=== PATIENT | male | born 1975 | race Caucasian/White ===

== ENCOUNTER 2017-02-20 10:19 | Inpatient (IN) | payer OTHER ==
--- NOTE | 2017-02-20 10:47 | ED ---
General Adult HPI - General Chief complaint: Neuro Symptoms/Deficit Stated complaint: right side numbness Time Seen by Provider: 02/20/17 10:30 Source: patient, RN notes reviewed Mode of arrival: ambulatory - History of Present Illness Initial comments: This is a 41-year-old male who presents to the emergency department complaining of a 6 day history of slurred speech and numbness of the right side of his tongue and altered sensation of the right cheek. Patient denies any visual disturbance patient denies any headache patient denies any black strength of any of his extremities patient denies any numbness anywhere else. Patient states he was being treated for a sinus infection but has slurred speech continues. Patient denies any chest pain palpitations difficulty breathing chest breath per patient denies abdominal pain patient denies nausea vomiting diarrhea. Family states at times it appears he does have a little bit of facial droop at the corner of his right mouth but most the time it does not appear that way. - Related Data Home Medications Medication Instructions Recorded Confirmed Warfarin [Coumadin] 5 mg PO DAILY 06/01/14 02/20/17 Sulfamethox-Tmp 800-160Mg [Bactrim 1 tab PO BID 02/20/17 02/20/17 DS 800-160 mg] Allergies Allergy/AdvReac Type Severity Reaction Status Date / Time cephalexin monohydrate Allergy Unknown Verified 02/20/17 10:55 [From Plizy] Review of Systems ROS Statement: Those systems with pertinent positive or pertinent negative responses have been documented in the HPI. ROS Other: All systems not noted in ROS Statement are negative. Past Medical History Past Medical History: Deep Vein Thrombosis (DVT), Pulmonary Embolus (PE) Additional Past Medical History / Comment(s): antiphospholipid antibody syndrome. dvt. clotting disorder APS History of Any Multi-Drug Resistant Organisms: None Reported Past Surgical History: Orthopedic Surgery Additional Past Surgical History / Comment(s): rt leg removal blood clot Past Anesthesia/Blood Transfusion Reactions: Unable to Obtain Past Psychological History: No Psychological Hx Reported Smoking Status: Never smoker Past Alcohol Use History: Occasional Past Drug Use History: None Reported - Past Family History Mother Family Medical History: Hypertension Father Additional Family Medical History / Comment(s): autoimmune disorder, esphageal stricture, double hernia surgery General Exam - General Exam Comments Initial Comments: GENERAL: Patient is well-developed and well-nourished. Patient is nontoxic and well- hydrated and is in no acute distress. ENT: Neck is soft and supple. No significant lymphadenopathy is noted. Oropharynx is clear. Moist mucous membranes. Neck has full range of motion without eliciting any pain. . EYES: The sclera were anicteric and conjunctiva were pink and moist. Extraocular movements were intact and pupils were equal round and reactive to light. Eyelids were unremarkable. PULMONARY: Unlabored respirations. Good breath sounds bilaterally. No audible rales rhonchi or wheezing was noted. CARDIOVASCULAR: There is a regular rate and rhythm without any murmurs gallops or rubs. ABDOMEN: Soft and nontender with normal bowel sounds. No palpable organomegaly was noted. There is no palpable pulsatile mass. SKIN: Skin is clear with no lesions or rashes and otherwise unremarkable. NEUROLOGIC: Patient is alert and oriented x3. Motor and sensory are intact in all extremities. Patient has altered sensation of the right cheek when I touch it. Patient does not have any obvious facial droop I looked him. Patient has some slurred speech. MUSCULOSKELETAL: Normal extremities with adequate strength and full range of motion. No lower extremity swelling or edema. No calf tenderness. LYMPHATICS: No significant lymphadenopathy is noted PSYCHIATRIC: Normal psychiatric evaluation. Course Vital Signs 02/20/17 02/20/17 02/20/17 10:26 11:00 11:30 Temperature 98.8 F Pulse Rate 60 58 L 56 L Respiratory 16 16 Rate Blood Pressure 150/89 141/77 133/76 O2 Sat by Pulse 98 97 97 Oximetry 02/20/17 12:00 Temperature Pulse Rate 50 L Respiratory 16 Rate Blood Pressure 133/76 O2 Sat by Pulse 96 Oximetry Medical Decision Making - Medical Decision Making EKG shows sinus bradycardia 57 bpm KS interval 162 QRS is 118 QT interval 442 QTC is 430. Patient's EKG shows no ST segment elevation or depression or T wave abnormalities are noted. CT of the brain shows a left frontal low attenuation area consistent with a CVA. With Dr. Fields he agreed to admit the patient I wrote admitting orders I consult stated Dr. Kim. - Lab Data Result diagrams: 02/20/17 10:50 02/20/17 10:50 Lab Results 02/20/17 02/20/17 02/20/17 Range/Units 10:50 10:50 10:50 WBC 7.7 (3.8-10.6) k/uL RBC 4.74 (4.30-5.90) m/uL Hgb 14.3 (13.0-17.5) gm/dL Hct 41.7 (39.0-53.0) % MCV 88.0 (80.0-100.0) fL MCH 30.1 (25.0-35.0) pg MCHC 34.2 (31.0-37.0) g/dL RDW 13.9 (11.5-15.5) % Plt Count 126 L (150-450) k/uL Neutrophils % 80 % Lymphocytes % 10 % Monocytes % 4 % Eosinophils % 4 % Basophils % 0 % Neutrophils # 6.2 (1.3-7.7) k/uL Lymphocytes # 0.8 L (1.0-4.8) k/uL Monocytes # 0.3 (0-1.0) k/uL Eosinophils # 0.3 (0-0.7) k/uL Basophils # 0.0 (0-0.2) k/uL PT (9.0-12.0) sec INR (<1.1) APTT (22.0-30.0) sec Sodium 143 (137-145) mmol/L Potassium 4.2 (3.5-5.1) mmol/L Chloride 108 H (98-107) mmol/L Carbon Dioxide 21 L (22-30) mmol/L Anion Gap 14 mmol/L BUN 25 H (9-20) mg/dL Creatinine 1.03 (0.66-1.25) mg/dL Est GFR (MDRD) Af Amer >60 (>60 ml/min/1.73 sqM) Est GFR (MDRD) Non-Af >60 (>60 ml/min/1.73 sqM) Glucose 96 (74-99) mg/dL Calcium 9.6 (8.4-10.2) mg/dL Total Bilirubin 1.3 (0.2-1.3) mg/dL AST 27 (17-59) U/L ALT 30 (21-72) U/L Alkaline Phosphatase 71 (38-126) U/L Total Creatine Kinase 205 H (55-170) U/L CK-MB (CK-2) 0.8 (0.0-2.4) ng/mL CK-MB (CK-2) Rel Index 0.4 Troponin I <0.012 (0.000-0.034) ng/mL Total Protein 8.8 H (6.3-8.2) g/dL Albumin 4.8 (3.5-5.0) g/dL 02/20/17 Range/Units 10:50 WBC (3.8-10.6) k/uL RBC (4.30-5.90) m/uL Hgb (13.0-17.5) gm/dL Hct (39.0-53.0) % MCV (80.0-100.0) fL MCH (25.0-35.0) pg MCHC (31.0-37.0) g/dL RDW (11.5-15.5) % Plt Count (150-450) k/uL Neutrophils % % Lymphocytes % % Monocytes % % Eosinophils % % Basophils % % Neutrophils # (1.3-7.7) k/uL Lymphocytes # (1.0-4.8) k/uL Monocytes # (0-1.0) k/uL Eosinophils # (0-0.7) k/uL Basophils # (0-0.2) k/uL PT 39.7 H (9.0-12.0) sec INR 4.0 (<1.1) APTT 91.3 H (22.0-30.0) sec Sodium (137-145) mmol/L Potassium (3.5-5.1) mmol/L Chloride (98-107) mmol/L Carbon Dioxide (22-30) mmol/L Anion Gap mmol/L BUN (9-20) mg/dL Creatinine (0.66-1.25) mg/dL Est GFR (MDRD) Af Amer (>60 ml/min/1.73 sqM) Est GFR (MDRD) Non-Af (>60 ml/min/1.73 sqM) Glucose (74-99) mg/dL Calcium (8.4-10.2) mg/dL Total Bilirubin (0.2-1.3) mg/dL AST (17-59) U/L ALT (21-72) U/L Alkaline Phosphatase (38-126) U/L Total Creatine Kinase (55-170) U/L CK-MB (CK-2) (0.0-2.4) ng/mL CK-MB (CK-2) Rel Index Troponin I (0.000-0.034) ng/mL Total Protein (6.3-8.2) g/dL Albumin (3.5-5.0) g/dL Disposition Clinical Impression: Cerebrovascular accident Disposition: ADMITTED IP TO THIS [facility] Time of Disposition: 13:03
[2017-02-20 11:05] LABS: Basophils % (A) 0 %; CH 31.6; CHCM 36.1; Eosinophils # (A) 0.3 k/uL (0-0.7); Eosinophils % (A) 4 %; HCT 41.7 % (39.0-53.0); HGB 14.3 gm/dL (13.0-17.5); Luc # (Auto) 0.14; Luc % (Auto) 2; Lymphocytes # (A) 0.8 k/uL (1.0-4.8); Lymphocytes % (A) 10 %; MCH 30.1 pg (25.0-35.0); MCHC 34.2 g/dL (31.0-37.0); Mean Platelet Volume 7.6; Monocytes # (A) 0.3 k/uL (0-1.0); Monocytes % (A) 4 %; Neutrophils # (A) 6.2 k/uL (1.3-7.7); Neutrophils % (A) 80 %; RBC 4.74 m/uL (4.30-5.90); RDW 13.9 % (11.5-15.5); WBC 7.7 k/uL (3.8-10.6); WBC (Perox) 7.42
[2017-02-20 11:14] LABS: Prothrombin Time 39.7 sec (9.0-12.0)
[2017-02-20 11:15] LABS: ALT 30 U/L (21-72); AST 27 U/L (17-59); Alkaline Phosphatase 71 U/L (38-126); Anion Gap 14 mmol/L; Blood Urea Nitrogen 25 mg/dL (9-20); Calcium 9.6 mg/dL (8.4-10.2); Carbon Dioxide 21 mmol/L (22-30); Chloride 108 mmol/L (98-107); Glucose 96 mg/dL (74-99); Non-African American GFR(MDRD) >60 (>60 ml/min/1.73 sqM); Potassium 4.2 mmol/L (3.5-5.1); Sodium 143 mmol/L (137-145); Total Bilirubin 1.3 mg/dL (0.2-1.3); Total Protein 8.8 g/dL (6.3-8.2)
--- NOTE | 2017-02-20 11:20 | CT ---
EXAMINATION TYPE: CT brain wo con for TPA DATE OF EXAM: 02/20/2017 11:11 AM COMPARISON: NONE HISTORY: Right sided numbness CT DLP: 995.[address] of the brain was performed. The ventricles, basal cisterns and sulci overlying the cerebral convexities demonstrate no significan t enlargement. There is a small area of decreased attenuation within the left frontal lobe at the level of the coron a radiata suspicious for underlying vascular insult or lesion. MRI is recommended. There is no evidence for intracranial hemorrhage or sulcal effacement. No mass effects are seen.No midline shift. Osseous calvarium is intact. IMPRESSION: 1. decreased attenuation within the left frontal lobe at the level of the murillo radiata suspicious f or underlying vascular insult or lesion. MRI is recommended. No evidence for intracranial hemorrhage or significant mass effect.
[2017-02-20 11:26] LABS: Creatine Kinase 205 U/L (55-170); Partial Thromboplastin Time 91.3 sec (22.0-30.0)
[2017-02-20 11:39] LABS: Creatine Kinase MB 0.8 ng/mL (0.0-2.4); Troponin I <0.012 ng/mL (0.000-0.034)
--- NOTE | 2017-02-20 12:42 | XR ---
EXAMINATION TYPE: XR chest 2V DATE OF EXAM: 02/20/2017 11:26 AM COMPARISON: 07/24/2015 HISTORY: Chest pain TECHNIQUE: Single frontal view of the chest is obtained. FINDINGS: There is no focal air space opacity, pleural effusion, or pneumothorax seen. Chronic scarring left l ower lobe. The cardiac silhouette size is within normal limits. The osseous structures are intact. IMPRESSION: 1. No acute process.
[2017-02-20] MEDS ORDERED: ASPIRIN 325 MG TAB PO STA (13:03)
--- NOTE | 2017-02-20 15:30 | US ---
EXAMINATION TYPE: US carotid duplex BILAT DATE OF EXAM: 02/20/2017 1:36 PM COMPARISON: None CLINICAL HISTORY: Stenosis. Right facial numbness and difficulty speaking; on Coumadin for DVT EXAM MEASUREMENTS: RIGHT: Peak Systolic Velocity (PSV) cm/sec ----- Right CCA: 65.3 ----- Right ICA: 74.6 ----- Right ECA: 50.5 ICA/CCA ratio: 1.1 RIGHT: End Diastole cm/sec ----- Right CCA: 12.9 ----- Right ICA: 19.7 ----- Right ECA: 7.8 LEFT: Peak Systolic Velocity (PSV) cm/sec ----- Left CCA: 73.6 ----- Left ICA: 85.3 ----- Left ECA: 76.2 ICA/CCA ratio: 1.2 LEFT: End Diastole cm/sec ----- Left CCA: 16.7 ----- Left ICA: 33.5 ----- Left ECA: 7.6 VERTEBRALS (direction of flow): Right Vertebral: Antegrade Left Vertebral: Antegrade Very mild intimal thickening is noted at bilateral carotid bulb and PSV is wnl bilaterally. Grayscale, color Doppler, spectral Doppler imaging performed of the carotid arteries. IMPRESSION: No hemodynamic significant stenosis of the proximal internal carotid arteries bilaterall y by Doppler criteria, an indirect measurement of carotid stenosis Criteria for Assigning % of Stenosis / Diameter reduction (Estimation based on the indirect measurements of the internal carotid artery velocities (ICA PSV). 1. Normal (no stenosis)=ICA PSV < 125 cm/s: ratio < 2.0: ICA EDV<40 cm/s. 2. Less than 50% stenosis=ICA PSV < 125 cm/s: ratio < 2.0: ICA EDV<40 cm/s. 3. 50 to 69% stenosis=ICA PSV of 125 to 230 cm/s: ration 2.0 ? 4.0: ICA EDV 40-100 cm/s. 4. Greater than 70% stenosis to near occlusion= ICA PSV > 230 cm/s: ratio > 4.0: ICA EDV > 100 cm/s. 5. Near occlusion= ICA PSV velocities may be low or undetectable: variable ratio and ICA EDV. 6. Total occlusion=unable to detect flow.
[2017-02-20] MEDS: WARFARIN 5 MG TAB PO SCH (18:08)
[2017-02-21 07:17] LABS: INR 3.5 (<1.1)
--- NOTE | 2017-02-21 09:53 | CONS ---
DATE OF CONSULTATION: 02/20/2017 CHIEF COMPLAINT: Stroke. HISTORY OF PRESENT ILLNESS: The patient is a pleasant 41-year-old male who is being evaluated today on 02/20/17 by the neurology service per the request of Dr. Persaud for a stroke. The patient states that he has been having slurred speech and numbness in his tongue for approximately one week. He had followed up with his primary care physician, who diagnosed him with some sinus infection and treated him accordingly. When the symptoms did not resolve, the patient was advised to go to the emergency room. In the emergency room, he was still slurring his speech and he was having numbness in the tongue and the oral region and due to this, he had significant tongue biting. A CT scan of the brain was done, which showed hypoattenuation involving the left frontal lobe. The patient does report having some speech production difficulties although the intensity is mild. A carotid Doppler was done, which showed no hemodynamically significant stenosis. The patient does have history of antiphospholipid antibody syndrome and does take Coumadin at home. Last week, his INR was subtherapeutic at 1.9 according to the patient and his . On this admission, his INR is therapeutic at 4.0. His CBC was normal except for mild thrombocytopenia at 126,000. His comprehensive metabolic profile and cardiac enzymes were normal. The patient denies any lateralizing numbness or weakness in his extremities and denies any headache or dizziness. He does report a history of left eye visual field loss that was transient a few months ago. PAST MEDICAL HISTORY: Antiphospholipid antibody syndrome, history of DVT and pulmonary embolism, orthopedic surgeries. SOCIAL HISTORY: He denied any tobacco or drug use. He occasionally drinks alcohol. FAMILY HISTORY: Positive for hypertension and autoimmune disease. HOME MEDICATIONS: Reviewed in the chart. ALLERGIES: KEFLEX. REVIEW OF SYSTEMS: As mentioned above and otherwise negative. PHYSICAL EXAM: Vital signs show a temperature of 97.8, pulse 58, respirations 16, blood pressure 118/69. GENERAL APPEARANCE: The patient is a well-developed male who appears to be in no acute distress. HEENT: Normocephalic, atraumatic, no facial asymmetry is seen. Neck is supple with no masses felt. CARDIOVASCULAR: Regular rate and rhythm. ABDOMEN: Nontender, nondistended. Extremities showed no edema or clubbing. NEUROLOGICAL EXAM: The patient is alert, aware, and oriented x3. Speech is mildly dysarthric. Language testing was normal except for slight reduction in fluency. Naming, repetition, and comprehension was intact. Strength is full in all 4 extremities. Sensory exam was normal to light touch in all 4 extremities. No facial asymmetry is noticed on cranial nerve testing. IMPRESSION: 1. Acute ischemic stroke, left frontal lobe. 2. Mild dysarthria. 3. Mild expressive aphasia. 4. Hypercoagulable state with history of antiphospholipid antibody syndrome. 5. Numbness. RECOMMENDATIONS: The patient does appear to have suffered an acute ischemic stroke as mentioned above, involving the left frontal lobe. He is having mild dysarthria and minimal reduction in fluency on language testing. The patient is already on Coumadin and his INR is therapeutic at this time. He likely suffered a stroke when his INR was subtherapeutic at 1.9 last week. Continue IV hydration as tolerated. I will order an MRI of the brain without contrast. Continue monitoring his INR daily. Speech therapy will be consulted. I will continue to follow with you. Further recommendations to follow. Thank you for allowing me to participate in the care of your patient. If you have any questions, please feel free to contact me.
[2017-02-21] MEDS: ASPIRIN 325 MG TAB PO SCH (11:43)
--- NOTE | 2017-02-21 12:24 | P.HPIM ---
History of Present Illness H&P Date: 02/21/17 Chief Complaint: Speech difficulty This is a 41-year-old gentleman with complex past medical history significant for underlying antiphospholipid antibody syndrome and history of DVT and PE who is chronically maintained on Coumadin that presented to the emergency room with slurred speech and numbness involving his tongue for approximately one week. Patient said that his symptoms started to getting progressively worse. There was no significant weakness or neurological deficits otherwise. Patient presented to the emergency room and a computed tomography scan of the brain was done showing hypoattenuation involving the left frontal lobe. Patient was admitted to telemetry floor and neurology consultation requested. His speech appeared normal to me today. His at the bedside said that his speech has improved significantly but is not back to his normal. Review of Systems Review of system: 14 points review of systems were obtained and were negative except to what were mentioned in the HPI. Past Medical History Past Medical History: Deep Vein Thrombosis (DVT), Pulmonary Embolus (PE) Additional Past Medical History / Comment(s): Current tx for sinus infection, antiphospholipid antibody syndrome-clotting disorder, L arm and bilateral leg dvts, PE L lung, kidney stones,. myocardial bridge, leaky cardiac valve. History of Any Multi-Drug Resistant Organisms: None Reported Past Surgical History: Heart Catheterization, Orthopedic Surgery Additional Past Surgical History / Comment(s): 08/19/15 cardiac cath, rt leg removal blood clot Past Anesthesia/Blood Transfusion Reactions: No Reported Reaction Past Psychological History: No Psychological Hx Reported Additional Psychological History / Comment(s): Pt resides with his spouse and 2 children. He is a [employer]. He is independent. Smoking Status: Never smoker Past Alcohol Use History: Occasional Past Drug Use History: None Reported - Past Family History Mother Family Medical History: Hypertension Additional Family Medical History / Comment(s): Mother is 67yrs old. Father Additional Family Medical History / Comment(s): autoimmune disorder, esphageal stricture, double hernia surgery, agent orange exposure while in [place]. He is 68yrs old. Medications and Allergies Home Medications Medication Instructions Recorded Confirmed Type Warfarin [Coumadin] 5 mg PO DAILY 06/01/14 02/20/17 History Sulfamethox-Tmp 800-160Mg [Bactrim 1 tab PO BID 02/20/17 02/20/17 History DS 800-160 mg] Allergies Allergy/AdvReac Type Severity Reaction Status Date / Time cephalexin monohydrate Allergy Unknown Verified 02/20/17 10:55 [From Keflex] Physical Exam Vitals: Vital Signs Temp Pulse Pulse Resp BP BP Pulse Ox 02/21/17 11:19 70 17 117/77 99 02/21/17 07:39 61 17 02/21/17 07:33 96.7 F L 61 17 128/73 98 02/21/17 04:03 97.7 F 82 18 125/59 91 L 02/21/17 04:00 97.4 F L 86 18 136/89 97 02/21/17 00:00 98.1 F 51 L 17 113/67 97 02/20/17 22:03 97.7 F 55 L 18 117/65 96 02/20/17 20:00 97.2 F L 62 18 139/84 96 02/20/17 17:48 96.6 F L 62 16 145/81 97 02/20/17 17:01 97.8 F 58 L 16 118/69 97 02/20/17 16:03 63 16 114/71 98 02/20/17 15:03 58 L 16 103/57 100 02/20/17 14:03 50 L 16 115/67 99 02/20/17 14:00 50 L 16 115/67 97 Intake and Output 02/20/17 02/21/17 02/21/17 22:59 06:59 14:59 Intake Total 633 180 Output Total 240 Balance 633 -60 Intake: Oral 633 180 Output: Urine 240 Other: Voiding Method Urinal Urinal Urinal # Voids 1 1 Weight 93.4 kg General: The patient is awake and alert, in no distress, and does not appear acutely ill. Eye: extra-ocular movements are intact; there is normal conjunctiva bilaterally. . Neck: The neck is supple, there is no tenderness or JVD. Cardiovascular: Normal S1-S2, no S3-S4, no murmurs. Respiratory: Lungs clear to auscultation bilaterally with no wheezes rhonchi or rales. Gastrointestinal: Abdomen is soft, nontender, nondistended, with no organomegaly. . Musculoskeletal: Normal ROM, no tenderness, There is no pedal edema. Neurological: There are no obvious motor or sensory deficits. Speech is normal. Skin: Skin is warm and dry and no rashes or lesions are noted. Results CBC & Chem 7: 02/20/17 10:50 02/20/17 10:50 Labs: Abnormal Lab Results - Last 24 Hours (Table) 02/21/17 Range/Units 06:33 PT 34.0 H (9.0-12.0) sec Thrombosis Risk Factor Assmnt - Choose All That Apply Any of the Below Risk Factors Present?: Yes Each Factor Represents 1 point: Age 41-60 years, Obesity (BMI >25) Other Risk Factors: Yes Each Risk Factor Represents 3 Points: History of DVT/PE Other congenital or acquired thrombophilia - If yes, enter type in comment: No Thrombosis Risk Factor Assessment Total Risk Factor Score: 5 Thrombosis Risk Factor Assessment Level: High Risk Assessment and Plan Plan: 1. Acute ischemic stroke involving the left frontal lobe 2. Mild dysarthria and expressive aphasia 3. Underlying antiphospholipid antibody syndrome 4. History of DVTs and PEs in the past on anticoagulation with Coumadin Today, I reviewed his medication list and lab work results. Continue telemetry monitoring. Carotid Doppler showed no hemodynamically significant stenosis. Brain MRI ordered for further evaluation of left frontal hypoattenuation noted on computed tomography scan of the brain. I would also order echocardiogram. We will continue to monitor closely. Repeat lab work in the morning. PT/OT/ speech therapy ordered.
--- NOTE | 2017-02-21 14:51 | MR ---
EXAMINATION TYPE: MR brain wo con DATE OF EXAM: 02/21/2017 2:41 PM COMPARISON: CT brain from yesterday. HISTORY: CVA, Lip and tongue numbness, slurred speech TECHNIQUE: Multiplanar, multisequence imaging of the brain and brainstem is performed without IV cont rast. FINDINGS: Diffusion weighted images demonstrate area of increased signal on diffusion weighted images with dimi nished signal on ADC mapping that shows T1 hypointensity and T2 hyperintensity involving the posterio r left frontal lobe at level of murillo radiata corresponding to area of concern on CT measuring appro ximately 2.0 x 1.5 cm consistent with area of evolving acute infarction. There is no worrisome extra-axial fluid collection. The ventricular system and cisternal spaces are normal in size and appearance. The brain volume is age appropriate. There is occasional focus of T2 hyperintensity seen throughout the white matter bilaterally. Less than 6 lesions are felt present, le sions are nonspecific and may be on basis of product of chronic small vessel ischemic change. Midline structures demonstrate normal morphology. The craniocervical junction appears within normal limits. Normal vascular flow voids are present. The globes remain intact bilaterally. There is modera te to severe mucosal thickening in the left maxillary sinus redemonstrated. There is more mild mucosa l thickening with air-fluid level in the right maxillary sinus redemonstrated. IMPRESSION: 1. Acute infarct left coronal radiata posterior frontal lobe is confirmed, MCA distribution. 2. Acute on chronic maxillary sinus disease redemonstrated.
[2017-02-21] MEDS: WARFARIN 5 MG TAB PO SCH (18:15)
[2017-02-22 06:24] LABS: INR 2.9 (<1.1); Prothrombin Time 28.4 sec (9.0-12.0)
[2017-02-22] MEDS: ASPIRIN 325 MG TAB PO SCH (07:59)
[2017-02-22 08:39] VITALS: RESP 18; TEMP 97
--- NOTE | 2017-02-22 10:05 | ECHOF ---
Referral Reason:Stroke MEASUREMENTS -------- HEIGHT: 182.9 cm WEIGHT: 93.0 kg BP: 117/77 RVIDd: 2.5 cm (< 3.3) IVSd: 1.1 cm (0.6 - 1.1) LVIDd: 4.8 cm (3.9 - 5.3) LVPWd: 1.1 cm (0.6 - 1.1) IVSs: 2.0 cm LVIDs: 3.7 cm LVPWs: 1.8 cm LA Diam: 3.8 cm (2.7 - 3.8) LAESV Index (A-L): 25.01 ml/m Ao Diam: 3.2 cm (2.0 - 3.7) AV Cusp: 2.3 cm (1.5 - 2.6) LA Diam: 3.5 cm (2.7 - 3.8) MV EXCURSION: 18.395 mm (> 18.000) MV EF SLOPE: 77 mm/s (70 - 150) EPSS: 0.8 cm MV E Cecilio: 0.61 m/s MV DecT: 275 ms MV A Cecilio: 0.38 m/s MV E/A Ratio: 1.60 RAP: 5.00 mmHg RVSP: 34.23 mmHg FINDINGS -------- Resting bradycardia (HR<60bpm). This was a technically good study. There is borderline concentric left ventricular hypertrophy. Overall left ventricular systolic function is low-normal with, an EF between 50 - 55 %. The right ventricle is normal in size. Normal LA size by volume 22+/-6 ml/m2. The right atrium is normal in size. Aortic valve is trileaflet and is mildly thickened. Trace to mild aortic regurgitation. The mitral valve leaflets are mildly thickened. Mild mitral annular calcification present. There is trace mitral regurgitation. There is mild mitral valve prolapse. Mild tricuspid regurgitation present. The right ventricular systolic pressure, as measured by Doppler, is 34.23mmHg. Trace/mild (physiologic) pulmonic regurgitation. The aortic root size is normal. Normal inferior vena cava with normal inspiratory collapse consistent with estimated right atrial pressure of 5 mmHg. There is no pericardial effusion. CONCLUSIONS -------- 1. Resting bradycardia (HR<60bpm). 2. The mitral valve leaflets are mildly thickened. 3. Mild mitral annular calcification present. 4. There is trace mitral regurgitation. 5. There is mild mitral valve prolapse. 6. Mild tricuspid regurgitation present. 7. The right ventricular systolic pressure, as measured by Doppler, is 34.23mmHg. 8. Trace/mild (physiologic) pulmonic regurgitation. 9. The aortic root size is normal. 10. Normal inferior vena cava with normal inspiratory collapse consistent with estimated right atrial pressure of 5 mmHg. 11. There is no pericardial effusion. 12. This was a technically good study. 13. There is borderline concentric left ventricular hypertrophy. 14. Overall left ventricular systolic function is low-normal with, an EF between 50 - 55 %. 15. The right ventricle is normal in size. 16. Normal LA size by volume 22+/-6 ml/m2. 17. The right atrium is normal in size. 18. Aortic valve is trileaflet and is mildly thickened. 19. Trace to mild aortic regurgitation. V[employer]LEYB[employer] COACH: Bao Singh RDCS
[2017-02-22 11:40] VITALS: BP 133/86; PULSE 69
--- NOTE | 2017-02-22 12:35 | P.DS ---
Providers Date of admission: 02/20/17 13:03 Expected date of discharge: 02/22/17 Attending physician: Roshan Persaud Primary care physician: Mayi Pretty [facility] Course: This is a 41-year-old gentleman with past medical history significant for underlying antiphospholipid antibody syndrome maintained on Coumadin at home with a target INR of 3-4 who presented to the hospital with the slurred speech. Patient was admitted and was seen and evaluated by neurology. He underwent an MRI of the brain showing acute infarct of the left murillo radiata/posterior frontal lobe/MCA distribution. Echocardiogram showed preserved ejection fraction with no significant valvular abnormalities. Carotid Doppler showed no hemodynamically significant stenosis. I discussed with the patient continuing Coumadin and adding Plavix once a day to his regimen. Speech therapy will be scheduled as an outpatient. We discussed increased risk of bleeding and anal on both Coumadin and Plavix. Patient verbalized understanding and is agreeable. 1. Acute ischemic stroke involving the left frontal lobe 2. Mild dysarthria and expressive aphasia 3. Underlying antiphospholipid antibody syndrome 4. 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
== END 2017-02-22 16:56 | disposition home or self-care (01) | DRG 65 ==
LOC: EC 10:19 → 6SEL 13:03
PROVIDERS: ADMIT Internal Medicine; ATTEND Internal Medicine
DX: I63.9 Cerebral infarction, unspecified (principal); D68.61 Antiphospholipid syndrome; D69.6 Thrombocytopenia, unspecified; R47.81 Slurred speech; R47.01 Aphasia; R47.1 Dysarthria and anarthria; Z86.718 Personal history of other venous thrombosis and embolism; Z86.711 Personal history of pulmonary embolism; Z87.442 Personal history of urinary calculi; Z79.01 Long term (current) use of anticoagulants; Z79.899 Other long term (current) drug therapy
CPT/HCPCS: 36415; 70450; 70551; 71020; 80053; 82550; 82553; 84484; 85025; 85610; 85730; 93005; 93306; 93880

== ENCOUNTER → 2017-05-28 | Outpatient (CLI) | payer BC ==
--- NOTE | 2017-05-28 14:27 | US ---
EXAMINATION TYPE: US venous doppler duplex LE DATE OF EXAM: 05/28/2017 2:11 PM COMPARISON: CLINICAL HISTORY: I82.409 Acute embolism and thrombosis, D68.61. Hx of bilateral DVT. Hx of stroke x 2 months ago. On blood thinners. Hx of PE. Patient states having right upper leg/groin pain SIDE PERFORMED: Bilateral TECHNIQUE: The lower extremity deep venous system is examined utilizing real time linear array sonog tejal with graded compression, doppler sonography and color-flow sonography. VESSELS IMAGED: External Iliac Vein (EIV) Common Femoral Vein Deep Femoral Vein Greater Saphenous Vein * Femoral Vein Popliteal Vein Small Saphenous Vein * Proximal Calf Veins (* superficial vessels) No popliteal fossa lesion is seen. Right Leg: Appears POSITIVE for DVT from EIV to Proximal calf veins. Thready flow seen. Compressio ns deferred due to visual echogenic echoes. Left Leg: Appears POSITIVE for DVT from proximal femoral vein to lower popliteal vein. Thready flow seen. Compressions deferred due to visual echogenic echoes. IMPRESSION: THIS EXAMINATION IS POSITIVE FOR THROMBUS BILATERALLY, AGE UNDETERMINED.
== END | disposition home or self-care (01) ==
LOC: RADUSWWP 13:05
PROVIDERS: ATTEND Family Medicine
DX: I82.403 Acute embolism and thrombosis of unspecified deep veins of lower extremity, bilateral (principal); D68.61 Antiphospholipid syndrome
CPT/HCPCS: 93970

== ENCOUNTER 2019-04-21 19:16 | Emergency (ER) | payer BC, OTHER ==
[2019-04-21] MEDS ORDERED: SODIUM CHLORIDE 0.9% 500 ML 500 ML IV STA (19:22)
[2019-04-21] MEDS ORDERED: ASPIRIN 325 MG TAB PO STA (19:22)
[2019-04-21] MEDS ORDERED: SODIUM CHLORIDE 0.9% 1,000 ML IV STA ×2 (19:22)
[2019-04-21] MEDS ORDERED: SODIUM CHLORIDE 0.9% 1,000 ML IV SCH (19:30)
[2019-04-21 19:38] LABS: Basophils % (A) 0 %; Eosinophils # (A) 0.3 k/uL (0-0.7); Eosinophils % (A) 6 %; HCT 39.5 % (39.0-53.0); HGB 13.8 gm/dL (13.0-17.5); Lymphocytes # (A) 0.6 k/uL (1.0-4.8); Lymphocytes % (A) 14 %; MCHC 34.9 g/dL (31.0-37.0); Mean Platelet Volume 8.4; Monocytes # (A) 0.2 k/uL (0-1.0); Monocytes % (A) 4 %; Neutrophils # (A) 3.2 k/uL (1.3-7.7); Neutrophils % (A) 75 %; Platelet Count 111 k/uL (150-450); RBC 4.59 m/uL (4.30-5.90); WBC 4.3 k/uL (3.8-10.6)
[2019-04-21 19:59] LABS: INR 1.2 (<1.2); Prothrombin Time 12.2 sec (9.0-12.0)
--- NOTE | 2019-04-21 19:59 | XR ---
EXAMINATION TYPE: XR chest 2V DATE OF EXAM: 04/21/2019 COMPARISON: 02/20/2017 HISTORY: Left-sided weakness TECHNIQUE: Frontal and lateral views of the chest are obtained. FINDINGS: There is some linear density in the left lower lobe. Right lung is clear. Heart and medias tinum are normal. There is no pleural effusion. There is slight blunting of left costophrenic angle. There is osteopenia. IMPRESSION: Scarring and subsegmental atelectasis at the left lung base unchanged. Normal heart.
[2019-04-21 20:06] LABS: ALT 24 U/L (21-72); AST 27 U/L (17-59); African American GFR (CKD) >90 (>60 ml/min/1.73 sqM); Albumin 4.4 g/dL (3.5-5.0); Alkaline Phosphatase 49 U/L (38-126); Anion Gap 9 mmol/L; Blood Urea Nitrogen 17 mg/dL (9-20); Calcium 9.6 mg/dL (8.4-10.2); Carbon Dioxide 23 mmol/L (22-30); Chloride 111 mmol/L (98-107); Glucose 123 mg/dL (74-99); Potassium 4.1 mmol/L (3.5-5.1); Sodium 143 mmol/L (137-145); Total Bilirubin 1.5 mg/dL (0.2-1.3); Total Protein 7.2 g/dL (6.3-8.2)
[2019-04-21 20:09] LABS: Partial Thromboplastin Time 65.2 sec (22.0-30.0)
--- NOTE | 2019-04-21 20:13 | CT ---
EXAMINATION TYPE: CT brain wo con for TPA DATE OF EXAM: 04/21/2019 COMPARISON: None HISTORY: left sided weakness. hx of cva. CT DLP: 1320.9 mGycm Automated exposure control for dose reduction was used. FINDINGS: Ventricles and sulci appear normal. There is no mass effect nor midline shift. There is no evidence o f intracranial hemorrhage. The calvarium is intact. IMPRESSION: Negative head CT scan. There is mild hypodensity left parietal lobe on old exam is not seen on today' s exam.
--- NOTE | 2019-04-21 20:20 | CT ---
EXAMINATION TYPE: CT angio head neck DATE OF EXAM: 04/21/2019 HISTORY: left sided weakness. hx of cva. COMPARISON: None CT DLP: 1202.2 mGycm. Automated Exposure Control for Dose Reduction was Utilized. TECHNIQUE: CTA scan of the neck is performed with IV Contrast, patient injected with 50cc mL of Isov ue 370, axial images are obtained, coronal and sagittal reformatted images are reviewed. Three-D radha nstructed images are created on an independent workstation and reviewed. FINDINGS: There is normal branching pattern of the great vessels on the aortic arch. There is bilateral arteria l flow in the subclavian arteries. There is arterial flow in the common internal and external carotid arteries bilaterally. There is bilateral arterial flow in the vertebral arteries. Left vertebral art jillian is larger than the right. There is wide patency of the carotid artery bifurcations. There is no e vidence of carotid or vertebral artery aneurysm or dissection. There is arterial flow in the anterior middle and posterior cerebral arteries. There is arterial flow in the vertebrobasilar artery system. Basilar artery fills mostly from the left side. There is no mass effect. There is no evidence of intracranial aneurysm or neovascularity. There is no rmal contrast opacification of the venous sinuses. IMPRESSION: Negative CT angiogram of the neck. negative CT angiogram of the brain.
--- NOTE | 2019-04-21 20:30 | ED ---
Neuro HPI - General Chief Complaint: Neuro Symptoms/Deficit Stated Complaint: stroke like symptoms Time Seen by Provider: 04/21/19 19:22 Source: patient, EMS, RN notes reviewed, old records reviewed Mode of arrival: EMS Limitations: no limitations - History of Present Illness Is the patient presenting with stroke symptoms?: Yes Last Known Well Date: 04/21/19 Last Known Well Time: 18:19 -: hour(s) Initial Comments: This is a 43-year-old male the ER for evaluation. Patient was essay for evaluation regarding strokelike symptoms. Left-sided weakness left arm and leg weakness. Patient has history of CVA. Has congenital blood clotting disorder patient unsure of name but is currently on Lovenox daily and has been taking medications as prescribed. Patient was sitting at dinner began to have left- sided weakness left arm numbness and tingling left leg numbness and tingling and difficulty with ambulation while walking. Patient has prior stroke that consistent with difficulty with speech. Patient states symptoms are resolving currently. Location: left arm, left leg History of same: No Place: home Severity: moderate Quality: weak, numb, tingling Improves With: time Worsens With: none On Anticoagulants: Yes Context: gradual onset Associated Symptoms: denies other symptoms Treatments Prior to Arrival: none - Related Data Home Medications: Home Medications Medication Instructions Recorded Confirmed Atorvastatin [Lipitor] 40 mg PO HS 04/21/19 04/21/19 Cholecalciferol [Vitamin D3 (25 1,000 unit PO DAILY 04/21/19 04/21/19 Mcg = 1000 Iu)] Enoxaparin [Lovenox] 150 mg SQ DAILY 04/21/19 04/21/19 Hydroxychloroquine Sulfate 200 mg PO BID 04/21/19 04/21/19 [Plaquenil] Multivitamins, Thera [Multivitamin 1 tab PO DAILY 04/21/19 04/21/19 (formulary)] [place]-3 Fatty Acids/Fish Oil [Fish 1 cap PO MOWEFR 04/21/19 04/21/19 Oil 1,000 mg Softgel] Vitamin E 100 unit PO DAILY 04/21/19 04/21/19 Previous Rx's Medication Instructions Recorded Clopidogrel Bisulfate [Plavix] 75 mg PO DAILY #30 tab 02/22/17 Allergies/Adverse Reactions: Allergies Allergy/AdvReac Type Severity Reaction Status Date / Time cephalexin monohydrate Allergy Unknown Verified 04/21/19 20:36 [From Keflex] Review of Systems ROS Statement: Those systems with pertinent positive or pertinent negative responses have been documented in the HPI. ROS Other: All systems not noted in ROS Statement are negative. General Exam - General Exam Comments Initial Comments: NIH is currently 0 is all symptoms have resolved Limitations: no limitations General appearance: alert, in no apparent distress Head exam: Present: atraumatic, normocephalic, normal inspection Eye exam: Present: normal appearance, PERRL, EOMI. Absent: scleral icterus, conjunctival injection, periorbital swelling ENT exam: Present: normal exam, mucous membranes moist Neck exam: Present: normal inspection. Absent: tenderness, meningismus, lymphadenopathy Respiratory exam: Present: normal lung sounds bilaterally. Absent: respiratory distress, wheezes, rales, rhonchi, stridor Cardiovascular Exam: Present: regular rate, normal rhythm, normal heart sounds. Absent: systolic murmur, diastolic murmur, rubs, gallop, clicks GI/Abdominal exam: Present: soft, normal bowel sounds. Absent: distended, tenderness, guarding, rebound, rigid Extremities exam: Present: normal inspection, full ROM, normal capillary refill. Absent: tenderness, pedal edema, joint swelling, calf tenderness Back exam: Present: normal inspection Neurological exam: Present: alert, oriented X3, CN II-XII intact Psychiatric exam: Present: normal affect, normal mood Skin exam: Present: warm, dry, intact, normal color. Absent: rash Stroke MDM - Lab Data Result diagrams: 04/21/19 19:27 04/21/19 19:27 Lab Results 04/21/19 04/21/19 04/21/19 Range/Units 19:27 19:27 19:27 WBC 4.3 (3.8-10.6) k/uL RBC 4.59 (4.30-5.90) m/uL Hgb 13.8 (13.0-17.5) gm/dL Hct 39.5 (39.0-53.0) % MCV 86.0 (80.0-100.0) fL MCH 30.0 (25.0-35.0) pg MCHC 34.9 (31.0-37.0) g/dL RDW 13.0 (11.5-15.5) % Plt Count 111 L (150-450) k/uL Neutrophils % 75 % Lymphocytes % 14 % Monocytes % 4 % Eosinophils % 6 % Basophils % 0 % Neutrophils # 3.2 (1.3-7.7) k/uL Lymphocytes # 0.6 L (1.0-4.8) k/uL Monocytes # 0.2 (0-1.0) k/uL Eosinophils # 0.3 (0-0.7) k/uL Basophils # 0.0 (0-0.2) k/uL PT 12.2 H (9.0-12.0) sec INR 1.2 H (<1.2) APTT 65.2 H (22.0-30.0) sec Sodium 143 (137-145) mmol/L Potassium 4.1 (3.5-5.1) mmol/L Chloride 111 H (98-107) mmol/L Carbon Dioxide 23 (22-30) mmol/L Anion Gap 9 mmol/L BUN 17 (9-20) mg/dL Creatinine 1.03 (0.66-1.25) mg/dL Est GFR (CKD-EPI)AfAm >90 (>60 ml/min/1.73 sqM) Est GFR (CKD-EPI)NonAf 89 (>60 ml/min/1.73 sqM) Glucose 123 H (74-99) mg/dL Calcium 9.6 (8.4-10.2) mg/dL Total Bilirubin 1.5 H (0.2-1.3) mg/dL AST 27 (17-59) U/L ALT 24 (21-72) U/L Alkaline Phosphatase 49 (38-126) U/L Troponin I (0.000-0.034) ng/mL Total Protein 7.2 (6.3-8.2) g/dL Albumin 4.4 (3.5-5.0) g/dL 04/21/19 Range/Units 19:27 WBC (3.8-10.6) k/uL RBC (4.30-5.90) m/uL Hgb (13.0-17.5) gm/dL Hct (39.0-53.0) % MCV (80.0-100.0) fL MCH (25.0-35.0) pg MCHC (31.0-37.0) g/dL RDW (11.5-15.5) % Plt Count (150-450) k/uL Neutrophils % % Lymphocytes % % Monocytes % % Eosinophils % % Basophils % % Neutrophils # (1.3-7.7) k/uL Lymphocytes # (1.0-4.8) k/uL Monocytes # (0-1.0) k/uL Eosinophils # (0-0.7) k/uL Basophils # (0-0.2) k/uL PT (9.0-12.0) sec INR (<1.2) APTT (22.0-30.0) sec Sodium (137-145) mmol/L Potassium (3.5-5.1) mmol/L Chloride (98-107) mmol/L Carbon Dioxide (22-30) mmol/L Anion Gap mmol/L BUN (9-20) mg/dL Creatinine (0.66-1.25) mg/dL Est GFR (CKD-EPI)AfAm (>60 ml/min/1.73 sqM) Est GFR (CKD-EPI)NonAf (>60 ml/min/1.73 sqM) Glucose (74-99) mg/dL Calcium (8.4-10.2) mg/dL Total Bilirubin (0.2-1.3) mg/dL AST (17-59) U/L ALT (21-72) U/L Alkaline Phosphatase (38-126) U/L Troponin I <0.012 (0.000-0.034) ng/mL Total Protein (6.3-8.2) g/dL Albumin (3.5-5.0) g/dL - NIH Stroke Scale 1a. Level of Consciousness: (0) alert 1b. LOC Questions: (0) answers correctly 1c. LOC Commands: (0) performs tasks correctly 2. Best Gaze: (0) normal 3. Visual: (0) no visual loss 4. Facial Palsy: (0) normal symmetrical movement 5a. Motor Arm Left: (0) no drift 5b. Motor Arm Right: (0) no drift 6a. Motor Leg Left: (0) no drift 6b. Motor Leg Right: (0) no drift 7. Limb Ataxia: (0) absent 8. Sensory: (0) normal 9. Best Language: (0) no aphasia 10. Dysarthria: (0) normal 11. Extinction/Inattention: (0) no abnormality - Thrombolytic Inclusion/Exclusion Thrombolytic Inclusion Criteria: Ischemic Stroke Onset< 3h Thrombolytic Contraindications: Patient on Anticoagulants - Medical Decision Making 43-year-old male the ER with TIA, patient presented with strokelike symptoms which are now resolved. Patient is currently on anticoagulation, discussed at this point that is his back and edema much good to stay overnight as we cannot give TPA in the case of severe stroke he is artery on anticoagulation with aspirin and Plavix as well as heparin. Patient has had prior evaluation of echo, and CTA is negative. The day. Patient will be discharged home - Radiology Data Radiology results: report reviewed (CT brain CTA had not negative for acute disease), image reviewed - EKG Data -: EKG Interpreted by Me (EKG shows sinus recurred 58, [place] 14, QRS 04/08/2020) Past Medical History Past Medical History: Deep Vein Thrombosis (DVT), Pulmonary Embolus (PE) Additional Past Medical History / Comment(s): Current tx for sinus infection, antiphospholipid antibody syndrome-clotting disorder, L arm and bilateral leg dvts, PE L lung, kidney stones,. myocardial bridge, leaky cardiac valve. History of Any Multi-Drug Resistant Organisms: None Reported Past Surgical History: Heart Catheterization, Orthopedic Surgery Additional Past Surgical History / Comment(s): 08/19/15 cardiac cath, rt leg removal blood clot Past Anesthesia/Blood Transfusion Reactions: No Reported Reaction Past Psychological History: No Psychological Hx Reported Smoking Status: Never smoker Past Alcohol Use History: Occasional Past Drug Use History: None Reported - Past Family History Mother Family Medical History: Hypertension Additional Family Medical History / Comment(s): Mother is 67yrs old. Father Additional Family Medical History / Comment(s): autoimmune disorder, esphageal stricture, double hernia surgery, agent orange exposure while in [place]. He is 68yrs old. Course Vital Signs 04/21/19 04/21/19 04/21/19 19:24 19:30 20:30 Temperature 98.3 F 98.3 F 98 F Pulse Rate 60 Pulse Rate [ 60 56 L Pulse Oximetery ] Respiratory 19 18 19 Rate Blood Pressure 139/80 Blood Pressure 130/74 121/56 [Left Arm] O2 Sat by Pulse 96 98 99 Oximetry Disposition Clinical Impression: Transient cerebral ischemia, Cerebrovascular accident Disposition: HOME SELF-CARE Condition: Good Is patient prescribed a controlled substance at d/c from ED?: No Referrals: Mayi Pretty MD [Primary Care Provider] - 1-2 days
[2019-04-21 20:34] VITALS: BP 121/56; PULSE 56; RESP 19; TEMP 98
[2019-04-21] MEDS ORDERED: ATORVASTATIN 80 MG TAB PO SCH (21:00)
[2019-04-22] MEDS ORDERED: ASPIRIN 325 MG TAB PO SCH (09:00)
== END 2019-04-21 21:10 | disposition home or self-care (01) ==
LOC: EC 19:16 → 3SCARD 19:23 → UNDOADMIN 19:23 → EC 21:10
DX: I63.9 Cerebral infarction, unspecified (principal); G45.9 Transient cerebral ischemic attack, unspecified; Z88.1 Allergy status to other antibiotic agents; Z79.01 Long term (current) use of anticoagulants; Z79.899 Other long term (current) drug therapy; Z86.711 Personal history of pulmonary embolism; Z86.718 Personal history of other venous thrombosis and embolism; Z95.818 Presence of other cardiac implants and grafts; Z86.2 Personal history of diseases of the blood and blood-forming organs and certain disorders involving the immune mechanism
CPT/HCPCS: 99285; 96360; 36415; 93005; 80053; 84484; 85025; 85610; 85730; 71046; 70496; 70450; 70498; Q9967

== ENCOUNTER 2021-02-18 13:19 | Emergency (ER) | payer BC, OTHER ==
[2021-02-18 13:39] VITALS: BP 144/86; PULSE 58; RESP 18; TEMP 97.9
--- NOTE | 2021-02-18 14:00 | XR ---
EXAMINATION TYPE: XR ribs RT DATE OF EXAM: 02/18/2021 COMPARISON: 04/21/2019 HISTORY: Pain TECHNIQUE: 2 view right ribs FINDINGS: No pneumothorax is evident. There are nondisplaced rib fractures along the posterior lateral right ribs including 4-7. IMPRESSION: 1. Nondisplaced fracture fourth through seventh posterior-lateral right ribs.
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
== END 2021-02-18 15:09 | disposition home or self-care (01) ==
LOC: EC 13:19
DX: S22.41XA Multiple fractures of ribs, right side, initial encounter for closed fracture (principal); W19.XXXA Unspecified fall, initial encounter; Z79.899 Other long term (current) drug therapy; Z86.711 Personal history of pulmonary embolism; Z86.73 Personal history of transient ischemic attack (TIA), and cerebral infarction without residual deficits
CPT/HCPCS: 99283

== ENCOUNTER → 2021-03-17 | Outpatient (CLI) | payer OTHER ==
--- NOTE | 2021-03-17 14:46 | XR ---
EXAMINATION TYPE: XR chest 2V DATE OF EXAM: 03/17/2021 COMPARISON: NONE HISTORY: Chest pain TECHNIQUE: Frontal and lateral views of the chest are obtained. FINDINGS: There is no focal air space opacity. No evidence for pneumothorax. No pleural effusion. The cardiac silhouette size is within normal limits. The osseous structures are grossly intact. IMPRESSION: 1. No acute cardiopulmonary process.
--- NOTE | 2021-03-17 14:47 | XR ---
EXAMINATION TYPE: XR ribs RT DATE OF EXAM: 03/17/2021 COMPARISON: 02/18/2021 HISTORY: Rib pain TECHNIQUE: 2 views FINDINGS: I see no pleural effusion or pneumothorax. There is deformity of the right fifth rib and pr obably the sixth rib related to nondisplaced fractures. The remainder of exam is unremarkable. IMPRESSION: There are right-sided rib fractures not changed in position compared to 02/18/2021 exam. T here is clearing of the atelectasis right lung base. No complicating process seen.
== END | disposition home or self-care (01) ==
LOC: RADXRMAIN 14:07
PROVIDERS: ATTEND Emergency Medicine
DX: S22.41XA Multiple fractures of ribs, right side, initial encounter for closed fracture (principal); R07.9 Chest pain, unspecified
CPT/HCPCS: 71046

== ENCOUNTER → 2021-04-26 | Outpatient (CLI) | payer BC ==
--- NOTE | 2021-04-26 14:23 | US ---
EXAMINATION TYPE: US venous doppler duplex LE RT DATE OF EXAM: 04/26/2021 2:01 PM COMPARISON: US 05/28/17, 06/01/14, 10/11/12, 03/11/12, 04/14/11, 09/06/10 CLINICAL HISTORY: M25.571 RT ANKLE PAIN. HX stroke, DVTs bilaterally, blood clotting disorder, on blo od thinners, Pt states recent trauma to ribs SIDE PERFORMED: Right TECHNIQUE: The lower extremity deep venous system is examined utilizing real time linear array sonog tejal with graded compression, doppler sonography and color-flow sonography. VESSELS IMAGED: Common Femoral Vein Deep Femoral Vein Greater Saphenous Vein * Femoral Vein Popliteal Vein (* superficial vessels) Right Leg: Positive for DVT from EIV to proximal calf veins. Thready flow seen. ? chronic clot. Comp ressions deferred due to visualized clot. IMPRESSION: Extensive deep vein thrombosis of the right lower extremity appears chronic and was seen on prior sahil ging years ago.
== END | disposition home or self-care (01) ==
LOC: RADUSWWP 13:16
PROVIDERS: ATTEND Family Medicine
DX: Z86.718 Personal history of other venous thrombosis and embolism (principal); Z86.73 Personal history of transient ischemic attack (TIA), and cerebral infarction without residual deficits

== ENCOUNTER 2022-03-10 09:11 | Emergency (ER) | payer BC ==
[2022-03-10 09:15] VITALS: TEMP 98.3
--- NOTE | 2022-03-10 09:57 | ED ---
General Adult HPI - General Chief complaint: Back Pain/Injury Stated complaint: Back Pain Time Seen by Provider: 03/10/22 09:45 Source: patient, family, RN notes reviewed, old records reviewed Mode of arrival: ambulatory Limitations: no limitations - History of Present Illness Initial comments: 46-year-old male presents with complaints of right lower back pain. He states that 2 days ago he thinks he felt a pop while working on a lawnmower and then yesterday while he was working out and the pain was worse. Today he states that the pain was significantly worse so he took a [place] and muscle relaxer. He did see a chiropractor yesterday with no relief. Patient denies any bowel or bladder incontinence. No fevers, no recent surgeries, no history of cancer. 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 He is a nonsmoker. -: days(s) (2) Location: back (lumbar sacral) Radiation: distal Severity scale (1-10): 9 Quality: constant Consistency: constant Improves with: none Worsens with: movement Associated Symptoms: denies other symptoms Treatments Prior to Arrival: other ([place], muscle relaxer and chiropractor) - Related Data Home Medications Medication Instructions Recorded Confirmed Enoxaparin [Lovenox] 150 mg SQ DAILY 04/21/19 03/10/22 Hydroxychloroquine Sulfate 400 mg PO DAILY 04/21/19 03/10/22 [Plaquenil] Aspirin EC [Ecotrin Low Dose] 81 mg PO DAILY 03/10/22 03/10/22 Atorvastatin [Lipitor] 80 mg PO DAILY 03/10/22 03/10/22 Previous Rx's Medication Instructions Recorded Clopidogrel Bisulfate [Plavix] 75 mg PO DAILY #30 tab 02/22/17 Cyclobenzaprine [Flexeril] 10 mg PO TID PRN #15 tab 03/10/22 predniSONE 50 mg PO DAILY #5 tab 03/10/22 Allergies Allergy/AdvReac Type Severity Reaction Status Date / Time cephalexin monohydrate Allergy Hives all Verified 03/10/22 10:15 [From Keflex] over body Review of Systems ROS Statement: Those systems with pertinent positive or pertinent negative responses have been documented in the HPI. ROS Other: All systems not noted in ROS Statement are negative. Past Medical History Past Medical History: CVA/TIA, Deep Vein Thrombosis (DVT), Pulmonary Embolus (PE) Additional Past Medical History / Comment(s): antiphospholipid antibody syndrome-clotting disorder, L arm and bilateral leg dvts, PE L lung, kidney stones,. myocardial bridge, leaky cardiac valve. History of Any Multi-Drug Resistant Organisms: None Reported Past Surgical History: Heart Catheterization, Orthopedic Surgery Additional Past Surgical History / Comment(s): 08/19/15 cardiac cath, rt leg removal blood clot Past Anesthesia/Blood Transfusion Reactions: No Reported Reaction Past Psychological History: No Psychological Hx Reported Smoking Status: Never smoker Past Alcohol Use History: Occasional Past Drug Use History: None Reported - Past Family History Mother Family Medical History: Hypertension Additional Family Medical History / Comment(s): Mother is 67yrs old. Father Additional Family Medical History / Comment(s): autoimmune disorder, esphageal stricture, double hernia surgery, agent orange exposure while in [place]. He is 68yrs old. General Exam Limitations: no limitations General appearance: alert, in no apparent distress Head exam: Present: atraumatic Eye exam: Present: normal appearance. Absent: scleral icterus, conjunctival injection Respiratory exam: Present: normal lung sounds bilaterally. Absent: respiratory distress, accessory muscle use Cardiovascular Exam: Present: regular rate Extremities exam: Present: full ROM, normal capillary refill. Absent: tenderness, pedal edema, calf tenderness Back exam: Present: normal inspection, tenderness (LS spine paraspinal right side) Expanded Back exam: Absent: saddle anesthesia Neurological exam: Present: alert, oriented X3, normal gait Psychiatric exam: Present: normal affect, normal mood Skin exam: Present: warm, dry, normal color. Absent: cyanosis, diaphoretic, pallor Course Vital Signs 03/10/22 03/10/22 09:13 10:21 Temperature 98.3 F Pulse Rate 60 64 Respiratory 20 18 Rate Blood Pressure 113/59 114/64 O2 Sat by Pulse 96 97 Oximetry Medical Decision Making - Medical Decision Making Patient was given a shot of Norflex and prescribed flexeril and steroids for 5 days since he is unable to take Motrin due to his clotting disorder. He was given a referral to orthopedics. I did advise him that sometimes back pain may take several weeks to resolve. Disposition Clinical Impression: Back pain Disposition: HOME SELF-CARE Condition: Good Instructions (If sedation given, give patient instructions): Low Back Strain (E D), Acute Low Back Pain (ED), Lower Back Exercises (ED) Additional Instructions: Take steroids as prescribed in addition to Flexeril as needed. Follow-up with your orthopedic doctor or primary care doctor next week. Return to the emergency room with any new or concerning symptoms including inability to ambulate, fevers, or bowel or bladder incontinence. Prescriptions: Cyclobenzaprine [Flexeril] 10 mg PO TID PRN #15 tab PRN Reason: Muscle Spasm predniSONE 50 mg PO DAILY #5 tab Is patient prescribed a controlled substance at d/c from ED?: No Referrals: Mayi Pretty MD [Primary Care Provider] - 1-2 days Time of Disposition: 10:09
[2022-03-10] MEDS ORDERED: ORPHENADRINE 30 MG/ML 2 ML VIAL IM STA (10:02)
[2022-03-10 10:25] VITALS: BP 114/64; PULSE 64; RESP 18
== END 2022-03-10 10:21 | disposition home or self-care (01) ==
LOC: EC 09:11
DX: M54.50 Low back pain, unspecified (principal); Z86.73 Personal history of transient ischemic attack (TIA), and cerebral infarction without residual deficits; Z88.1 Allergy status to other antibiotic agents; Z79.82 Long term (current) use of aspirin; Z79.01 Long term (current) use of anticoagulants
CPT/HCPCS: 99283; 96372; J2360

== ENCOUNTER → 2023-02-09 | Outpatient (CLI) | payer BC ==
--- NOTE | 2023-02-09 12:22 | MR ---
EXAMINATION TYPE: MR shoulder RT wo con DATE OF EXAM: 02/09/2023 COMPARISON: Outside right shoulder x-ray November 01, 2022 HISTORY: Right shoulder pain with difficulty raising arm overhead, hx injury. TECHNIQUE: Multiplanar, multisequence imaging of the right shoulder is performed without contrast. FINDINGS: Rotator Cuff: Large retracted tear involving posterior three quarters of the supraspinatus tendon latricia suring approximately 2.0 cm in length sagittal image 12. Retraction to level of the acromion and acro mioclavicular joint on coronal images. Some of the anterior fibers remain intact. Rotator cuff muscle bulk is preserved. Acromioclavicular Joint: Mild to moderate narrowing and subchondral cystic change. Mild to moderate c apsular hypertrophy. Glenohumeral Joint: High positioned head. Small to moderate-sized joint effusion greatest superiorly. No significant spurring. Labrum: The labrum appears grossly intact given limitation of non-arthrogram study. Biceps Tendon: The long head of biceps is in normal location within bicipital groove. Bone marrow signal: No focal abnormal marrow signal is appreciated. Other: No additional significant abnormality is appreciated. IMPRESSION: Significant retracted tear of the majority of the supraspinatus tendon as detailed above.
== END | disposition home or self-care (01) ==
LOC: RADMRIMAIN 11:09
PROVIDERS: ATTEND Orthopaedic Surgery
DX: M75.111 Incomplete rotator cuff tear or rupture of right shoulder, not specified as traumatic (principal)

== ENCOUNTER 2023-04-06 05:51 | Day surgery (SDC) | payer BC ==
--- NOTE | 2023-04-05 08:30 | P.HPOR ---
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 He's having pain with overhead activity and at night. He's tried therapy in addition to an injection without much relief. He is having significant night symptoms. Review of Systems Negative except as in HPI Past Medical History Past Medical History: CVA/TIA, Deep Vein Thrombosis (DVT), Pulmonary Embolus (PE) Additional Past Medical History / Comment(s): (APS)antiphospholipid antibody syndrome-clotting disorder, L arm and bilateral leg DVT's, PE L lung, kidney stones, myocardial bridge, leaky cardiac valve-not sure which one but doesn't cause any problems or symptoms. 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, no residual effects unless really tired then might stumble over speech a bit History of Any Multi-Drug Resistant Organisms: None Reported Past Surgical History: Heart Catheterization, Orthopedic Surgery Additional Past Surgical History / Comment(s): 08/19/15 cardiac cath, rt leg removal blood clot-had Trellis procedure Past Anesthesia/Blood Transfusion Reactions: No Reported Reaction Additional Past Anesthesia/Blood Transfusion Reaction / Comment(s): combative when woke up from Trellis procedure Smoking Status: Never smoker - Past Family History Mother Family Medical History: Hypertension Additional Family Medical History / Comment(s): Mother is 67yrs old. Father Additional Family Medical History / Comment(s): autoimmune disorder, esphageal stricture, double hernia surgery, agent orange exposure while in [place]. He is 68yrs old. Medications and Allergies Home Medications Medication Instructions Recorded Confirmed Type Clopidogrel Bisulfate [Plavix] 75 mg PO DAILY #30 tab 02/22/17 04/04/23 Rx Enoxaparin [Lovenox] 150 mg SQ DAILY 04/21/19 04/04/23 History Hydroxychloroquine Sulfate 400 mg PO DAILY 04/21/19 04/04/23 History [Plaquenil] Aspirin EC [Ecotrin Low Dose] 81 mg PO DAILY 03/10/22 04/04/23 History Atorvastatin [Lipitor] 80 mg PO DAILY 03/10/22 04/04/23 History Cyclobenzaprine [Flexeril] 10 mg PO TID PRN #15 tab 03/10/22 04/04/23 Rx Allergies Allergy/AdvReac Type Severity Reaction Status Date / Time cephalexin monohydrate Allergy Hives all Verified 04/04/23 15:04 [From Keflex] over body Physical Examination - Shoulder right Tenderness with palpation: anterior Pain: with abduction, with forward flexion ROM: abduction: 140 degrees ROM: forward flexion: 140 degrees ROM: internal rotation: lower lumbar ROM: external rotation: 60 degrees Crepitus with motion: Yes Strength: abduction: 5/5 (5-/5) Strength: external rotation: 5/5 (5-/5) Tests: internal impingement tests: positive, external impingment tests: positive Results The patient is a well-developed well-nourished male approximately 6 foot tall, 200 pounds of mesomorphic habitus. HEENT exam is nonfocal, neck is supple. On the right shoulder is tender about the anterior subacromial space. He has moderate subacromial crepitus. Walsh, Neer sign are positive. His distal neurovascular appears intact in the right upper extremity. - Diagnostic results Shoulder MRI: image reviewed (Right shoulder MRI is reviewed and shows evidence of a large retracted supraspinatus tear without fatty infiltration.) Assessment and Plan Assessment: Symptomatic right rotator cuff tear/right shoulder impingement Right proximal bicipital tendinosis History of DVT/pulmonary embolus Plan: I talked with the patient length regarding his condition along with treatment options. At this point he remains quite symptomatically despite attempted conservative measures. After thorough discussion as to proceed with surgery. We'll plan to proceed with arthroscopic evaluation right shoulder with probable rotator cuff repair, possible biceps tenotomy versus tenodesis. We will reinstitute his anticoagulation postoperatively.
[~2023-04-06 05:51] MED LIST: CLINDAMYCIN 600 MG in DEXTROSE 5% IN WATER 50 ML IVPB PRN; DEXAMETHASONE SOD PHOSPHATE 4 MG/ML 1 ML VIAL IV ONE; ONDANSETRON 4 MG/2 ML VIAL IVP ONE
[2023-04-06] MEDS ORDERED: LACTATED RINGERS 1,000 ML IV ONE (06:22)
[2023-04-06] MEDS ORDERED: MIDAZOLAM 2 MG/2 ML VIAL IVP ONE (07:01)
[2023-04-06] MEDS ORDERED: fentaNYL (PF) 50 MCG/ML 2 ML AMP IVP ONE (07:01)
[2023-04-06] MEDS ORDERED: ROPIVACAINE 5 MG/ML 30 ML VIAL ONE (07:25)
[2023-04-06] MEDS ORDERED: SUCCINYLCHOLINE CHLORIDE 200 MG/10 ML VIAL IV ONE (07:25)
[2023-04-06] MEDS ORDERED: MIDAZOLAM 2 MG/2 ML VIAL ONE (07:25)
[2023-04-06] MEDS ORDERED: fentaNYL (PF) 50 MCG/ML 2 ML AMP ONE (07:25)
[2023-04-06] MEDS ORDERED: LIDOCAINE 2% INJ 20 MG/ML (2 ML VIAL) ONE (07:25)
[2023-04-06] MEDS ORDERED: PROPOFOL 10 MG/ML 20 ML VIAL IV ONE (07:25)
[2023-04-06] MEDS ORDERED: NEOSTIGMINE 1 MG/ML 10 ML VIAL ONE (07:25)
[2023-04-06] MEDS ORDERED: ROCURONIUM 10 MG/ML (5 ML VIAL) IV ONE (07:25)
[2023-04-06] MEDS ORDERED: GLYCOPYRROLATE 0.2 MG/ML 2 ML VIAL ONE (07:25)
[2023-04-06] MEDS ORDERED: EPINEPHrine (PF) 1 ML in SODIUM CHLORIDE 0.9% IRRIGATIO 3,000 ML IRRIGATION ONE ×7 (08:15→08:18)
--- NOTE | 2023-04-06 09:19 | P.OP ---
Date of Procedure: 04/06/23 Preoperative Diagnosis: Right rotator cuff tear Postoperative Diagnosis: 3 cm rotator cuff tear involving the supraspinatus, high-grade partial-thickness tear intra-articular portion of the biceps Procedure(s) Performed: Right shoulder arthroscopic subacromial decompression/rotator cuff repair/biceps tenotomy Implants: Arthrex 4.75 mm swivel lock anchor 3, 5.5 mm swivel lock anchor 1, 3.5 mm push lock 1 Anesthesia: KOKO, regional Surgeon: Cory Garcia Analytic Programmer #1: Levi Cyr Estimated Blood Loss (ml): 10 Pathology: none sent Condition: stable Disposition: PACU Indications for Procedure: The patient's a 47-year-old male presents with right shoulder pain that began this year after working out. He felt a pop. His try conservative measures with persistence of his symptoms. A discussion of the risks and benefits of operative intervention versus continued conservative measures was made with patient. He opted to pursue surgical. Operative risks to include infection, neurovascular injury, development of blood clots, possible tendon rerupture, possible postoperative stiffness and possible need for subsequent procedures was discussed. Informed consent was obtained. Operative Findings: As below Description of Procedure: The patient was brought to the operating room, and after induction of general anesthesia was placed in a beachchair position. A preoperative interscalene block was placed for postoperative analgesia. I examined the right shoulder. There was no gross block to passive motion or gross glenohumeral instability. The right upper extremity was prepped and draped in normal fashion. The bony outlines the acromion, distal clavicle, and coracoid process were outlined with a skin marker. The glenohumeral joint was inflated with 50 mL of saline utilizing a spinal needle from posterior approach. A posterior portal was made through a 5 mm skin incision 1 cm medial and inferior to the posterior lateral border time. A blunt trocar was used to easily into the joint. Diagnostic arthroscopy was performed. An anterior portal was made just lateral to the coracoid process entering the joint above the subscapularis tendon. The subscapularis tendon appeared to be intact. Anterior labrum was intact. The inferior recess was inspected. The posterior labrum was intact. There was a high-grade partial-thickness tear of the long head of the biceps involving interarticular portion. It was elected to proceed with release at this point. This was released from the superior labrum with electrocautery and was allowed to retract to the bicipital groove. On inspection the rotator cuff, a full- thickness tear involving the supraspinatus was noted and was retracted to almost the glenoid. The arthroscope was placed in the subacromial space. A lateral portal was made 2 centimeters inferior to the anterior lateral border of the acromion. The rotator cuff was then mobilized with a traction suture. This was then brought back to the greater tuberosity. The soft tissue on the undersurface of the acromion was debrided with a motorized shaver and electrocautery clearly defining the anterior medial and lateral borders as well as the distal clavicle. An anterior inferior acromioplasty was performed with a motorized bhavin starting anterolateral, then extending this posteriorly, then extending this medially. I converted to a flat acromion and this was verified in the posterior and lateral viewing portals. The greater tuberosity was lightly decorticating with a shaver down to a bleeding bony surface. An accessory posterior lateral portals made through a 5 motor skin incision above the posterior lateral edge of the acromion and was used as a viewing portal. An accessory superior lateral portal was made just off the lateral edge of the acromion for anchor placement. 2 anchors were then placed just off the articular surface with the appropriate starting awl. 4.75 mm anchors preloaded with #2 fiber tape were placed. Good purchase was obtained. These fiber tapes were then passed the rotator cuff with a scorpion suture passer. A lateral row was created crisscrossing these tapes. A 4.75 mm swivel lock anchor and a 5.5 mm swivel lock anchor were then used laterally. There was a small dogear that was brought down with a fiber link. This was secured utilizing a 3.5 mm push lock anchor. Good purchase was obtained. Final arthroscopic view showed adequate compression at the footprint. The arthroscope was then removed. The portals were closed with simple 3-0 nylon sutures. A sterile dressing was applied in addition to an abductor brace. The patient was then awoken from general anesthesia and transferred to recovery room in good condition. Blood loss was estimated at 10 mL. No complications were incurred. Sponge and needle counts were correct in the case. Levi GUIDRY assisted and the major components of the case to include arm positioning, anchor placement, and rotator cuff repair.
[2023-04-06 09:31] VITALS: TEMP 96.8
[2023-04-06] MEDS: LACTATED RINGERS 1,000 ML IV SCH ×2 (09:43→10:55)
[2023-04-06] MEDS: HYDROmorphone 0.5 MG/0.5 ML SYRINGE IVP PRN ×3 (09:49→10:21)
--- NOTE | 2023-04-06 10:41 | P.ANPRN ---
Procedure Note - Anesthesia - Nerve Block Performed Right Interscalene Single Time Out Performed: Yes (07) Date of Procedure: 04/06/23 Procedure Start Time: Procedure Stop Time: : Location of Patient: PreOp Indication: Acute Post-Operative Pain, Requested by Surgeon Specifically requested for management of pain by : Cory Garcia Sedation Type: Sedate with meaningful contact maintained Preparation: Sterile Prep Position: Supine Catheter: None Needle Types: Pajunk Needle Gauge: 21 Ultrasound used to visualize needle placement: Yes Ultrasound used to observe medication spread: Yes Injectate: 0.5% Ropivacaine (see comment for volume) (30cc) Blood Aspirated: No Pain Paresthesia on Injection Noted: No Resistance on Injection: Normal Image Stored and Saved: Yes Events: Uneventful and Well Tolerated
[2023-04-06 12:03] VITALS: BP 119/74; PULSE 59; RESP 17
== END 2023-04-06 12:15 | disposition home or self-care (01) ==
LOC: OR 05:51
PROVIDERS: ATTEND Orthopaedic Surgery
DX: S46.011A Strain of muscle(s) and tendon(s) of the rotator cuff of right shoulder, initial encounter (principal); S46.111A Strain of muscle, fascia and tendon of long head of biceps, right arm, initial encounter; M75.41 Impingement syndrome of right shoulder; G89.18 Other acute postprocedural pain; X50.0XXA Overexertion from strenuous movement or load, initial encounter; E78.5 Hyperlipidemia, unspecified; F80.9 Developmental disorder of speech and language, unspecified; Z86.73 Personal history of transient ischemic attack (TIA), and cerebral infarction without residual deficits; Z86.711 Personal history of pulmonary embolism; Z86.718 Personal history of other venous thrombosis and embolism; Z79.01 Long term (current) use of anticoagulants; Z79.82 Long term (current) use of aspirin; Z79.899 Other long term (current) drug therapy; Z88.1 Allergy status to other antibiotic agents
CPT/HCPCS: 29827; 64415; C1713 ×5; C1894; J2250; J0330; J1100; J2710; J2405; J0171; J3010; J2795; J2704; J1170; J2001